=== PATIENT | male | born 1950 | race Caucasian/White ===

== ENCOUNTER → 2017-01-06 | Outpatient (CLI) | payer OTHER ==
[2017-01-06 10:09] LABS: ALT/SGPT 29 U/L (12-78); AST/SGOT 17 U/L (15-37); BLOOD UREA NITROGEN 19 mg/dl (7-18); BUN/CREATININE RATIO 17.1 (10-20); CALCIUM 8.9 mg/dl (8.5-10.1); CARBON DIOXIDE 28 mmol/L (21-32); CHLORIDE 106 mmol/L (98-107); GLUCOSE 90 mg/dl (70-99); POTASSIUM 4.1 mmol/L (3.5-5.1); SODIUM 139 mmol/L (136-145)
[2017-01-06 10:12] LABS: ALB/GLOB RATIO 1.1 (0.9-2); ALKALINE PHOSPHATASE 79 U/L (45-117); CHOLESTEROL 228 mg/dl (0-200); CHOLESTEROL/HDL RATIO 5.8; HDL CHOLESTEROL 39 mg/dl; LDL CHOLESTEROL CALCULATED 155 mg/dl; TRIGLYCERIDES 168 mg/dl (0-150); VERY LOW DENSITY LIPOPROT CALC 34 mg/dl
== END | disposition home or self-care (01) ==
LOC: C.LAB 08:13
PROVIDERS: ATTEND Internal Medicine
DX: E78.5 Hyperlipidemia, unspecified (principal); N40.1 Benign prostatic hyperplasia with lower urinary tract symptoms

== ENCOUNTER → 2017-08-25 | Outpatient (CLI) | payer OTHER ==
[2017-08-25 09:36] LABS: BASO % 0.2 %; BASO ABS # 0.01 K/uL (0-0.2); EOS % 5.6 %; EOS ABS # 0.25 K/uL (0-0.5); HEMATOCRIT 44.8 % (42-52); HEMOGLOBIN 15.2 g/dL (14.0-18.0); LYMPH % 40.2 %; LYMPH ABS # 1.79 K/uL (1.2-3.4); MEAN CELL VOLUME 84.8 fL (80-100); MEAN CORPUSCULAR HEMOGLOBIN 28.8 pg (25-34); MEAN CORPUSCULAR HGB CONC 33.9 g/dl (32-36); MEAN PLATELET VOLUME 9.6 fL (7.4-10.4); MONO % 7.9 %; MONO ABS # 0.35 K/uL (0.11-0.59); NEUT % 46.1 %; NEUT ABS # 2.05 K/uL (1.4-6.5); PLATELET COUNT 216 K/uL (130-400); RED CELL DISTRIBUTION WIDTH CV 14.3 % (11.5-14.5); WHITE BLOOD COUNT 4.45 K/uL (4.8-10.8)
[2017-08-25 10:07] LABS: BLOOD UREA NITROGEN 18 mg/dl (7-18); CARBON DIOXIDE 29 mmol/L (21-32); CREATININE 1.02 mg/dl (0.60-1.40); GLUCOSE 78 mg/dl (70-99); POTASSIUM 4.1 mmol/L (3.5-5.1); SODIUM 138 mmol/L (136-145)
== END | disposition home or self-care (01) ==
LOC: C.CPL 08:25
PROVIDERS: ATTEND Orthopaedic Surgery
DX: Z01.810 Encounter for preprocedural cardiovascular examination (principal); Z01.811 Encounter for preprocedural respiratory examination; M25.512 Pain in left shoulder

== ENCOUNTER → 2017-09-15 | Day surgery (SDC) | payer OTHER ==
[2017-09-06 07:33] VITALS: Ht 182.9 cm; Wt 87.3 kg
[~2017-09-15] VITALS: Ht 182.9 cm; Wt 87.3 kg
[~2017-09-15] MED LIST: ASPCH81X PO; ATROPINE SULFATE 0.1 MG/ML 5ML SYR IV PRN; BUPIVACAINE 0.25% 30 ML VIAL ONE; CLINDAMYCIN PHOS 150 MG/ML 2 ML VIAL IV SCH; DEXAMETHASONE SOD INJ 4 MG/ML VIAL ONE; EpINEphrine INJ 1MG/ML AMP 1 MG/ML AMP ONE; FENTANYL CITRATE INJ 50 MCG/1 ML 2 ML VIAL IV PRN; FENTANYL CITRATE INJ 50 MCG/1 ML 2 ML VIAL ONE; KETO10TA PO; KETOROLAC TROMETHAMINE 15 MG/ML VIAL IV. PRN; KETOROLAC TROMETHAMINE 30 MG/ML VIAL IV. PRN; LACTATED RINGER'S 1000ML 1,000 ML IV SCH; LIDOCAINE HCL 2% 2 ML VIAL (20MG/ML) ONE; MIDAZOLAM HCL 1 MG/ML 2ML VIAL ONE; ONDANSETRON INJ 2 MG/ML 2 ML VIAL IV PRN; ONDANSETRON INJ 2 MG/ML 2 ML VIAL ONE; OXYC-57 PO; OXYCODONE/ACETAMINOPHEN 5-325 TAB PO PRN; PHENYLEPHRINE HCL INJ 10 MG/ML VIAL ONE; PROMETHAZINE HCL INJ 25 MG/ML 1 ML VIAL ONE; PROMETHAZINE HCL INJ 6.25 MG in SODIUM CHLORIDE 0.9% 50ML 50 ML IV PRN; PROPOFOL IV EMULSION 10 MG/ML 20 ML VIAL ONE; ROPIVACAINE 0.5% 5 MG/ML 30 ML VIAL ONE; SODIUM CHLORIDE 0.9% 1000ML 1,000 ML IV SCH; TAMS0.4C38 PO
--- NOTE | 2017-09-15 09:18 | History & Physical Bridge - [place] ---
H&P Re-Evaluation Bridge Note: I have examined the patient, reviewed the History & Physical and in the interval since the performance of the History & Physical I have noted the following changes of clinical significance: No changes noted
--- NOTE | 2017-09-15 12:27 | [facility] Post Operative Brief Note ---
Immediate Operative Summary Operative Date September 15, 2017. Pre-Operative Diagnosis Left Shoulder Biceps Tendonitis, Pain, Rotator Cuff Tear Post-Operative Diagnosis Same Procedure(s) Performed Right Shoulder Arthroscopy With Medium Rotator Cuff Repair, Biceps Tenodesis Surgeon Dr. Goodwin Pc Support Specialist Surgeon(s) Aniket Jameson PA-C Estimated Blood Loss 5ml Findings Consistent with Post-Op Diagnosis Specimens None Drains None Anesthesia Type General Regional Complication(s) none Disposition Disposition: Recovery Room / PACU
--- NOTE | 2017-09-15 12:40 | Discharge Instructions-SurgCtr ---
Discharge Instructions Date of Service September 15, 2017. Visit Reason for Visit: Left Shoulder Biceps Tendinitis, Pain Discharge Discharge Diagnosis / Problem: SAME ABOVE Discharge Goals Goal(s): Decrease discomfort, Improve function Activity Recommendations Activity Limitations: as noted below Lifting Limitations: until after follow-up appointment Exercise/Sports Limitations: until after follow-up appointment Shower/Bathe: tomorrow Anesthesia . Post Anesthesia Instructions: If you have had General Anesthesia or IV Sedation: * Do not drive today. * Resume driving when surgeon permits. * Do not make important decisions or sign legal documents today. * Call surgeon for: 1. Temperature elevations greater than 101 degrees F. 2. Uncontrollable pain. 3. Excessive bleeding. 4. Persistent nausea and vomiting. 5. Medication intolerance (nausea, vomiting or rash). * For nausea and vomiting use only clear liquids such as: tea, soda, bouillon until nausea subsides, then gradually increase diet as tolerated. * If you have any concerns or questions, call your surgeon's office. If physician is unavailable and it is an emergency, call 911 or go to the nearest emergency room. . Instructions / Follow-Up Instructions / Follow-Up MEDICATIONS: * Resume previous medications unless instructed otherwise by your surgeon. * Always take pain medication on a full stomach or with food to avoid upset stomach. * Do not drink alcohol or drive while taking narcotics. * Ibuprofen or Tylenol may be taken if narcotic not needed. SPECIAL CARE INSTRUCTIONS: __ None _X_ Keep extremity elevated and iced x 48 hours; apply ice 20-30 minutes 8-10 times/day. May remove at night. __ Sling __24 hrs/day __ Remove at night _X_ Shoulder Immobilizer (MAY REMOVE AFTER 48 HOURS ONLY FOR THERAPY AND TO SHOWER) _X_ 24 hrs/day __ Remove at night _X_ Dressing __ Maintain until seen in office, may shower with plastic over site _X_ Remove dressings in 24-48 hours and then may shower _X_ Cover incisions with band-aids after showering __ Do not remove steri-strips Call physician if chills or temperature rises above 102 degrees or pain unrelieved by prescribed pain medications at . . Diet Recommendations Home Diet: no limitations Fluid Restriction: None Procedures Procedures Performed: Right Shoulder Arthroscopy With Medium Rotator Cuff Repair, Biceps Tenodesis Pending Studies Studies pending at discharge: no Work Instructions Return To Work: after follow-up Lifting Limitations: NO LIFTING WITH LEFT ARM Medical Emergencies . Who to Call and When: Medical Emergencies: If at any time you feel your situation is an emergency, please call 911 immediately. . Non-Emergent Contact Non-Emergency issues call your: Primary Care Provider Call Non-Emergent contact if: you have a fever, temperature is above 101.5 . . "Provider Documentation" section prepared by José Jameson. .
[2017-09-15 13:30] VITALS: TEMP 36.4
--- NOTE | 2017-09-15 13:43 | Anesthesia Progress Nt - [facility] ---
Anesthesia Post Op Note Date & Time September 15, 2017 at 13:42 Vital Signs Pain Intensity: 0 Vital Signs Past 12 Hours Date Time Temp Pulse Resp B/P (MAP) Pulse Ox O2 Delivery O2 Flow Rate FiO2 09/15/17 13:20 36.4 107/68 09/15/17 13:18 73 13 09/15/17 13:18 73 13 93 09/15/17 13:15 120/67 09/15/17 13:13 74 12 09/15/17 13:13 73 12 92 09/15/17 13:10 122/66 09/15/17 13:08 78 14 09/15/17 13:08 78 14 93 09/15/17 13:05 118/68 09/15/17 13:03 71 13 09/15/17 13:03 71 13 93 09/15/17 13:00 119/69 09/15/17 12:58 77 16 09/15/17 12:58 77 16 97 09/15/17 12:55 113/66 09/15/17 12:53 79 17 09/15/17 12:53 76 17 97 09/15/17 12:50 118/66 09/15/17 12:48 71 13 97 09/15/17 12:48 71 13 09/15/17 12:45 114/65 09/15/17 12:43 76 13 97 09/15/17 12:43 75 13 09/15/17 12:40 36 84 16 129/72 98 Mask 6 09/15/17 12:40 126/72 09/15/17 12:38 87 129/72 97 09/15/17 12:38 87 09/15/17 11:08 75 16 97 09/15/17 11:08 75 09/15/17 11:07 76 09/15/17 11:07 75 16 98 09/15/17 11:05 121/75 09/15/17 11:02 82 19 99 09/15/17 11:02 81 09/15/17 11:01 146/78 09/15/17 10:59 138/84 09/15/17 10:57 72 0 09/15/17 10:52 71 0 09/15/17 10:47 72 0 09/15/17 10:42 70 0 09/15/17 10:37 79 0 09/15/17 10:32 74 0 09/15/17 10:27 67 0 09/15/17 10:22 73 0 09/15/17 10:17 69 0 09/15/17 10:12 64 0 147/98 09/15/17 10:07 73 0 09/15/17 10:02 63 0 09/15/17 09:57 73 0 09/15/17 09:52 66 09/15/17 09:52 66 09/15/17 09:05 36.9 85 18 137/72 (93) 96 Room Air Notes Mental Status: alert / awake / arousable, participated in evaluation Pt Amnestic to Procedure: Yes Nausea / Vomiting: adequately controlled Pain: adequately controlled Airway Patency, RR, SpO2: stable & adequate BP & HR: stable & adequate Hydration State: stable & adequate Anesthetic Complications: no major complications apparent
[2017-09-15 14:41] VITALS: BP 142/81; PULSE 72; O2SAT 96
--- NOTE | 2017-09-15 14:47 | OPERATIVE REPORT ---
DATE OF OPERATION: 09/15/2017 PREOPERATIVE DIAGNOSIS: Left shoulder medium-sized rotator cuff tear with biceps tendinopathy. POSTOPERATIVE DIAGNOSIS: Same. PROCEDURE: Left shoulder diagnostic arthroscopy with limited debridement, medium-sized rotator cuff repair and arthroscopic biceps tenodesis. SURGEON: Dr. Damian Goodwin. PAY CLERK: Tony Jameson PA-C, whose assistance was necessary for positioning the arm and helping with instrumentation. ANESTHESIA: General with a left interscalene nerve block. COMPLICATIONS: None. CONDITION: Stable to PACU. INDICATIONS: Rahul is a pleasant 67-year-old male who is an avid skier. He has been having 3 months of left shoulder pain, but he does not recall any traumatic falls. MRI and clinical examination were diagnostic for medium-sized rotator cuff tear with medially subluxated biceps tendon. After failing conservative treatment, he elected to undergo arthroscopy. OPERATION AND FINDINGS: On 09/10/2017, he arrived at [facility] for the above procedure. He was seen in the preoperative holding area and the operative extremity was identified and signed. He was given a preoperative antibiotic and a left interscalene nerve block. He was taken back to the operating room, laid on the table in supine position and put under general anesthesia. He was put into the beachchair position. The left shoulder was prepped and draped in sterile fashion. Time-out was done. The patient's operative extremity was properly identified. A scope was introduced in the posterior portal. Diagnostic arthroscopy showed 1 small area of grade 3 chondral change in the center of the humeral head. There was no arthritis on the glenoid. There was some fraying to the anterior labrum. There was significant fraying of the long head of the biceps tendon. It was subluxated medially, but it did not tear the subscapularis. Subscapularis was intact. There was a tear of the entire supraspinatus. The infraspinatus and teres minor were checked and intact. An anterior portal was made. A shaver was used to do a limited debridement of the intraarticular structures and the biceps tendon was arthroscopically tenotomized for later tenodesis. The scope was then put into the subacromial space. A lateral portal was made. A shaver was used to do a complete subacromial and subdeltoid bursectomy. I did not see any signs of calcinosis of the coracoacromial ligament, so the structure in the acromion was left intact. An additional anterolateral portal was made and Helen cannulas were placed in each lateral portals. The greater tuberosity was prepared with a ring curette and a microfracture. The medium-sized crescent-shaped rotator cuff tear was then repaired with an Arthrex SpeedBridge configuration using 4.75 mm BioComposite SwiveLock suture anchors and FiberTapes. This gave a nice knotless SpeedBridge repair. Multiple pictures were taken. The long head of the biceps tendon was tagged with a FiberLink and incorporated into the anterior medial anchor to complete an arthroscopic biceps tenodesis. The scope was placed back into the glenohumeral joint and the articular margin of the rotator cuff had been restored. Pictures were taken. Arthroscopic instruments were removed from the shoulder. Portal sites were closed with 3-0 nylon. He was then placed in a soft dressing and a regular arm sling. He was then extubated, transferred to a litter and taken to postanesthesia care unit in stable condition. He tolerated the procedure well. I attest to the content of the Intraoperative Record and any orders documented therein. Any exception s are noted below.
== END | disposition home or self-care (01) ==
LOC: X.SURG 08:48
PROVIDERS: ATTEND Orthopaedic Surgery
DX: M75.102 Unspecified rotator cuff tear or rupture of left shoulder, not specified as traumatic (principal); M75.22 Bicipital tendinitis, left shoulder; E78.00 Pure hypercholesterolemia, unspecified; Z83.3 Family history of diabetes mellitus; Z88.0 Allergy status to penicillin; Z79.82 Long term (current) use of aspirin; E78.5 Hyperlipidemia, unspecified